=== PATIENT | male | born 1990 | race Caucasian/White ===

== ENCOUNTER 2023-03-12 02:11 | Emergency (ER) | payer MEDICAID, SELFPAY ==
[2023-03-12] VITALS (7 sets, daily range): BP systolic 124–160; BP diastolic 82–106; PULSE 99–114; RESP 18–20; TEMP 36.6; O2SAT 97–100; BMI 29.8
--- NOTE | 2023-03-12 02:57 | CRLHL7_ITS ---
For Patients: As a result of the Century Cures Act, medical imaging exams and procedure reports are released immediately into your electronic medical record. You may view this report before your referring provider. If you have questions, please contact your health care provider. INDICATION: Abdominal pain. Bloody diarrhea. TECHNIQUE: Multiplanar CT examination of the abdomen and pelvis were acquired after the administration of 100 mL Isovue 370 intravenously. COMPARISON: None. FINDINGS: Lower chest: Unremarkable. Mild gynecomastia Liver: Normal. Gallbladder: Normal. Biliary: No biliary ductal dilitation. Pancreas: Normal. Spleen: Tiny punctate calcifications within the splenic parenchyma, likely due to prior granulomatous disease. Adrenal Glands: Normal. Kidneys: Normal size and symmetrically enhancing. No obstructive calculi or hydronephrosis. Ureters: Unremarkable. Bladder: Unremarkable. Bowel: No obstruction. Questionable mild small-bowel wall thickening and hyper enhancing. The appendix is normal. No significant colonic diverticulosis. Fluid-filled loops of colon, suggestive of diarrheal illness. Pelvic organs: Unremarkable. Peritoneum: No free fluid or pneumoperitoneum. Vessels: Normal. Portal vein remains patent. No significant atherosclerotic disease. Lymph Nodes: Enlarged marsha hepatis and portacaval lymph nodes, of uncertain etiology, measuring up to 1.7 cm (2:51). Abdominal Wall/Soft Tissues: Unremarkable. Bones: Unremarkable. IMPRESSION: 1. Enlarged marsha hepatis and portacaval lymph nodes, indeterminate and of uncertain etiology, measuring up to 1.7 cm, possibly reactive. Consider short interval follow-up CT to assess stability. 2. Questionable mild hyperenhancement and thickening of the small bowel wall, which can be seen in the setting of a nonspecific infectious versus inflammatory enteritis. Fluid-filled colon, suggestive of diarrheal illness. Please note that all CT scans at this facility use dose modulation, iterative reconstruction, and/or weight-based dosing when appropriate to reduce radiation dose to as low as reasonably achievable. Dictated by Marcello Verdugo MD @ 03/12/2023 3:55:05 AM (Electronically Signed)
[2023-03-12 03:07] LABS: Lactate* 1.1 mmol/L (0.5-1.9)
[2023-03-12 03:08] LABS: Basophils Absolute Auto 0.02 K/uL (0.00-0.30); Basophils Percent Auto 0.2 % (0.0-3.0); Eosinophils Absolute Auto 0.06 K/uL (0.00-0.50); Eosinophils Percent Auto 0.7 % (0.0-7.0); Hematocrit 55.4 % (37.0-53.0); Immature Granulocytes Abs Auto 0.03 K/uL (0.00-0.30); Immature Granulocytes Pct Auto 0.3 %; Lymphocytes Percent Auto 5.7 % (20-44); Mean Corpuscular HGB Conc 33 gm/dL (32-36); Mean Corpuscular Hemoglobin 29 pg (26-34); Mean Corpuscular Volume 90 fL (80-100); Monocytes Percent Auto 4.9 % (0.0-11.0); Neutrophils Percent Auto 88.2 % (42.0-72.0); Platelet Count* 190 K/uL (140-440); Red Blood Count 6.16 m/uL (4.30-5.90); Slide Review Reflex No
--- NOTE | 2023-03-12 03:09 | ED_ITS ---
HPI - General Adult General Chief complaint: Nausea/Vomiting Stated complaint: Vomiting, Diarrhea Time Seen by Provider: 03/12/23 02:16 Source: patient Mode of arrival: ambulatory Limitations: no limitations History of Present Illness HPI narrative: 32-year-old male presents the emergency department for evaluation of bloody diarrhea. Reports that he started feeling nauseated 3 hours ago and had vomiting, about 30-45 minutes later, started having bloody diarrhea and has had several episodes. It is bright/darkish red. No black tarry stools. Some lower mild abdominal cramping. No fevers. No trauma or injury. No history of abdominal surgeries. Does have a family history of colon cancer in a grandmother at age 50. No personal or family history of inflammatory bowel disease, colitis. He has no history of anticoagulant use. On specific questioning, he does endorse a little bit of dysuria at the end of urination that started around the same time but also has some body aches. No headache. No shortness of breath, no rashes. No prior history of similar recent symptoms. No prior colonoscopy nor indications to ever have had 1. Has not tried taking any medication to help with the symptoms. Past medical history notable for hypertension, depression. Home meds are fluoxetine, lisinopril, hydrochlorothiazide. Denies allergies. Nonsmoker. ROS notable for the GI symptoms and generalized body aches as above, otherwise denies times 12 systems. Related Data Allergies Allergy/AdvReac Type Severity Reaction Status Date / Time No Known Drug Allergies Allergy Verified 03/12/23 02:26 [facility] Medical History Depression ?F32.A - Depression, unspecified (ICD-10) Hypertension ?I10 - Essential (primary) hypertension (ICD-10) Surgical History No significant past surgical history Social History Smoking Status: Never smoker Second hand tobacco smoke exposure: No How often do you have a drink containing alcohol: never How often do you have six or more drinks on one occasion: Never AUDIT-C Alcohol total score: 0 Non-prescribed substance use: denies use Exam Const: Vital Signs, click to edit/add: Vital Signs - 24 hr 03/12/23 02:24 03/12/23 02:24 03/12/23 03:00 Temperature 97.9 F Pulse Rate 104 H Pulse Rate [Right Pulse Oximeter] 99 Respiratory Rate 18 20 Blood Pressure 124/92 H Blood Pressure [Ri ght Upper Arm] 124/82 Pulse Oximetry 99 100 97 Oxygen Delivery Me thod Room Air 03/12/23 03:10 03/12/23 03:15 Temperature 97.9 F Pulse Rate 102 H Pulse Rate [Right Pulse Oximeter] 99 Respiratory Rate 20 20 Blood Pressure 134/85 Blood Pressure [Ri ght Upper Arm] 134/85 Pulse Oximetry 98 98 Oxygen Delivery Me thod Room Air Documenting provider has reviewed patient's vital signs: yes Common normals: no apparent distress and alert General appearance: cooperative Orientation/consciousness: Yes awake Other: Answers questions appropriately. No intoxication or impairment. HENMT: Common normals: normocephalic Head and scalp: normocephalic Face and sinus: normal facial exam Mouth: oral and palatal mucosa normal Throat: posterior oropharynx normal Eye: Common normals: conjunctivae normal General eye: normal appearance of both eyes Conjunctiva: conjunctiva(e) normal Neck & C-Spine: Common normals: full ROM and no lymphadenopathy Resp: Common normals: normal respiratory effort, no use of accessory muscles and clear to auscultation bilaterally Effort & inspection: able to speak in complete sentences Auscultation: clear to auscultation bilaterally Cardio: Common normals: regular rate, regular rhythm, S1 normal heart sound, S2 normal heart sound and no murmurs Rate: regular rate Rhythm: regular rhythm Heart sounds: S1 normal and S2 normal GI: Common normals: Normal to inspection, nondistended, normoactive bowel sounds present, soft to palpation, no hepatosplenomegaly and no masses Palpation: soft and no hepatosplenomegaly Rectal Exam - Male: visual inspection normal and normal sphincter tone; no hemorrhoids, no prolapse, no lesions and no mass Other: Mild diffuse tenderness. No rebound tenderness or guarding. No masses. Stool Hemoccult collected. But there was no visible blood or stool in the rectal vault. Extremity: Common normals: normal to inspection and no pedal edema Neuro: Sensorium/orientation: awake and alert Speech: speech normal Gait (neuro): normal gait Motor exam: no tremor noted Psych: Attitude: engaged Activity/motor behavior: appropriate eye contact Insight: insight good Judgement: judgment good Skin: Common normals: no rashes or lesions noted General skin exam: no rashes or lesions noted Course Course ED Course: Reported bloody diarrhea but no signs of any visible blood on exam. No signs of sepsis, hypotension or fever. Differential diagnosis includes inflammatory colitis, infectious colitis, gastroenteritis, diverticular bleed, volvulus, ischemic bowel, among others. Stool culture, ova and parasite, CT of the abdomen and pelvis, basic labs ordered. IV Protonix, Zofran and 1 L of IV fluids while we await results. Reevaluation(s) Time of Reevaluation #1: 04:12 Reevaluation #1: Patient reassessed, feeling well. Has not had any bloody diarrhea for us here in the ED and has had no vomiting. Did receive a L of fluid in the medications as described above. Overall CT and lab findings are very reassuring. I do not suspect that this is a bacterial infection based on labs and overall presentation. I recommended conservative management, lots of fluids and symptomatic treatment of the vomiting with Zofran. This certainly could have been a small Julee-Cotto tear. Recommended [id number] omeprazole for 1 week, Zofran. Counseled on alarm symptoms. Follow-up with primary care provider in 2 weeks to recheck symptoms and decide if a colonoscopy or endoscopy should be performed if he has persistent symptoms. All questions answered, ve rbalizes understanding and agreement. Vital Signs Vital signs: Initial Vital Signs Temperature 97.9 F 03/12/23 02:24 Temperature Source Temporal Artery Scan 03/12/23 02:24 Pulse Rate 104 H 03/12/23 02:24 Respiratory Rate 18 03/12/23 02:24 Blood Pressure 124/92 H 03/12/23 02:24 Blood Pressure Mean 102 03/12/23 02:24 Blood Pressure Position Sitting 03/12/23 02:24 Pulse Oximetry 99 03/12/23 02:24 Oxygen Delivery Method Room Air 03/12/23 02:24 Vital Signs Temperature 97.9 F 03/12/23 02:24 Pulse Rate 104 H 03/12/23 02:24 Respiratory Rate 18 03/12/23 02:24 Blood Pressure 124/92 H 03/12/23 02:24 Pulse Oximetry 99 03/12/23 02:24 Oxygen Delivery Method Room Air 03/12/23 02:24 Temperature 97.9 F 03/12/23 03:15 Pulse Rate 99 03/12/23 03:15 Respiratory Rate 20 03/12/23 03:15 Blood Pressure 134/85 03/12/23 03:15 Pulse Oximetry 98 03/12/23 03:15 Oxygen Delivery Method Room Air 03/12/23 03:15 Medications Administered Medications: Generic Name Dose Route Start Last Admin Trade Name Freq PRN Reason Stop Dose Admin Lactated Ringer's 1,000 mls @ 1,000 mls/hr 03/12/23 02:57 03/12/23 03:10 Lactated Ringers 1000 Ml IV 03/12/23 03:56 1,000 mls/hr .Q1H ONE Administration Ondansetron HCl 4 mg 03/12/23 02:57 03/12/23 03:10 Ondansetron 2 Mg/Ml Inj IVP 4 mg ONCE PRN Administration Pantoprazole Sodium 40 mg 03/12/23 02:57 03/12/23 03:10 Pantoprazole Sodium 40 Mg Inj IVP 03/12/23 02:58 40 mg ONCE ONE Administration Medical Decision Making Lab Data Lab results reviewed: Yes I reviewed the patient's lab results Lab results narrative: Stool blood positive, as expected. No sig no family leukocytosis. No elevation of inflammatory markers. Suspect viral gastroenteritis. Labs: Lab Results 03/12/23 Range/Units 03:00 WBC 8.80 (4.50-11.00) K/uL RBC 6.16 H (4.30-5.90) m/uL Hgb 18.0 H (13.5-17.5) gm/dL Hct 55.4 H (37.0-53.0) % MCV 90 (80-100) fL MCH 29 (26-34) pg MCHC 33 (32-36) gm/dL RDW Coeff of Dago 13.0 (11.5-15.5) % Plt Count 190 (140-440) K/uL Neut % (Auto) 88.2 H (42.0-72.0) % Lymph % (Auto) 5.7 L (20-44) % [place] % (Auto) 4.9 (0.0-11.0) % Eos % (Auto) 0.7 (0.0-7.0) % Baso % (Auto) 0.2 (0.0-3.0) % Neut # (Auto) 7.80 H (1.7-7.0) K/uL Lymph # (Auto) 0.50 L (0.90-2.90) K/uL [place] # (Auto) 0.40 (0.00-0.90) K/UL Eos # (Auto) 0.06 (0.00-0.50) K/uL Baso # (Auto) 0.02 (0.00-0.30) K/uL Abs Immat Gran (auto) 0.03 (0.00-0.30) K/uL Imm/Tot Granulo (auto) 0.3 % Sodium 140 (135-149) mmol/L Potassium 4.7 (3.6-5.1) mmol/L Chloride 107 (96-114) mmol/L Carbon Dioxide 21 (20-32) mmol/L Anion Gap 12 (7-15) mEq/L BUN 23 (5-24) mg/dL Creatinine 1.6 H (0.5-1.5) mg/dL Estimated Creat Clear 72.08 Estimated GFR 58 ml/min Glucose 148 H (60-115) mg/dL Lactate 1.1 (0.5-1.9) mmol/L Calcium 9.6 (8.4-10.6) mg/dL Total Bilirubin 1.0 (0.1-1.5) mg/dL AST 28 (12-35) U/L ALT 43 (4-50) U/L Alkaline Phosphatase 78 (40-150) U/L C-Reactive Protein 0.9 (0.5-1.0) mg/dL Total Protein 8.9 H (6.0-8.3) g/dL Albumin 4.9 (3.3-5.0) g/dL Lipase 48 (23-300) U/L Urine Color Yellow (Yellow) Urine Appearance Clear (Clear) Urine pH 5.5 (5.0-8.5) Ur Specific [place] >= 1.030 (1.000-1.030) Urine Protein 2+ A (Negative) Urine Glucose (UA) Negative (Negative) Urine Ketones 1+ A (Negative) Urine Blood Negative (Negative) Urine Nitrite Negative (Negative) Urine Bilirubin 2+ A (Negative) Urine Urobilinogen 0.2 (0.2-1.0) Ur Leukocyte Esterase Negative (Negative) Urine RBC 0-2 (0-2) Urine WBC 0-2 (0-5) Ur Squamous Epith Cells Few (None-Few) Amorphous Sediment Few A (None) Urine Bacteria Moderate A (None) Urine Mucus Moderate A (None) Stool Occult Blood Positive (Negative) Imaging Data CT scan - abdomen: Attestation: I have reviewed the pertinent imaging results. My impression: Enteritis. No free air, obstruction, appendicitis, volvulus or other mass. Radiologist's impression: IMPRESSION: 1. Enlarged marsha hepatis and portacaval lymph nodes, indeterminate and of uncertain etiology, measuring up to 1.7 cm, possibly reactive. Consider short interval follow-up CT to assess stability. 2. Questionable mild hyperenhancement and thickening of the small bowel wall, which can be seen in the setting of a nonspecific infectious versus inflammatory enteritis. Fluid-filled colon, suggestive of diarrheal illness. Discharge Plan Discharge Clinical Impression: Gastroenteritis Patient Disposition: Home, Self-Care Condition: Improved Instructions: Gastroenteritis (DC) Additional Instructions: As we discussed, there are no signs of severe infection, significant inflammation, tumors or other dangerous reason for the bloody diarrhea tonight. I suspect that this was just a very bad case of the stomach flu. It is okay to take Tylenol 1000 mg every 6 hours as needed for discomfort. I am going to give you prescription for some anti nausea medicine. You may take this up to every 8 hours. Drink lots of fluids. You will likely still have symptoms for another 2-3 days. I would like for you to purchase some [id number]-[id number] omeprazole and take this once daily for the next week. This will help heal the stomach irritation as well. Unfortunately, you may still have a little bit of bloody diarrhea. There are no signs that this is caused by food poisoning. If you have severe bleeding, are lightheaded, dizzy and or have a fever over 100.4, you should come back to the emergency room. Please make a follow-up appointment with a primary care physician within the next few weeks. I would like them to recheck your blood work and make sure there are no signs of persistent bleeding. You should also discuss with them whether you should have a colonoscopy. These are often recommended after you natarajan ve bloody stools to look for any dangerous reason that would not be seen on the CT scan. Please bring this paperwork with you to the appointment. Activity Level: No Restrictions Discharge Diet: Regular Follow Up/Referrals: Provider,Not a Local [Primary Care Provider] - Stand Alone Forms: [employer] Info Instructions
[2023-03-12] MEDS: LACTATED RINGERS 1000 ML 1,000 ML IV (03:10)
[2023-03-12] MEDS: PANTOPRAZOLE SODIUM 40 MG INJ IVP (03:10)
[2023-03-12] MEDS: ONDANSETRON 2 MG/ML inj 4 MG IVP (03:10)
[2023-03-12 03:13] LABS: Appearance Urine Clear (Clear); Bilirubin Urine 2+ (Negative); Blood Urine Negative (Negative); Color Urine Yellow (Yellow); Glucose Urine Negative (Negative); Ketones Urine 1+ (Negative); Leukocyte Esterase Urine Negative (Negative); Nitrite Urine Negative (Negative); Protein Urine 2+ (Negative); Specific Gravity Urine >= 1.030 (1.000-1.030); Urobilinogen Urine 0.2 (0.2-1.0); pH Urine 5.5 (5.0-8.5)
[2023-03-12 03:16] LABS: Fecal Occult Blood* Positive (Negative)
[2023-03-12 03:22] LABS: Albumin* 4.9 g/dL (3.3-5.0); Chloride* 107 mmol/L (96-114)
[2023-03-12 03:23] LABS: Potassium* 4.7 mmol/L (3.6-5.1); Sodium* 140 mmol/L (135-149)
[2023-03-12 03:25] LABS: Creatinine* 1.6 mg/dL (0.5-1.5); Est. Creatinine Clearance* 72.08; Estimated Glomerular Filt Rate 58 ml/min
[2023-03-12 03:26] LABS: Alanine Aminotransferase* 43 U/L (4-50); Alkaline Phosphatase* 78 U/L (40-150); Anion Gap 12 mEq/L (7-15); Aspartate Amino Transferase* 28 U/L (12-35); Blood Urea Nitrogen* 23 mg/dL (5-24); Calcium* 9.6 mg/dL (8.4-10.6); Carbon Dioxide* 21 mmol/L (20-32); Glucose* 148 mg/dL (60-115); Lipase* 48 U/L (23-300); Total Protein* 8.9 g/dL (6.0-8.3)
[2023-03-12 03:28] LABS: C Reactive Protein* 0.9 mg/dL (0.5-1.0)
[2023-03-12 03:31] LABS: Amorphous Sediment Urine Few; Bacteria Urine Moderate; RBC Urine 0-2 (0-2); Squamous Epithelial Cell Urine Few (None-Few); WBC Urine 0-2 (0-5)
[2023-03-12 03:32] LABS: Mucus Urine Moderate
[2023-03-12 04:04] LABS: PCR FLU A Negative PCR FLU A (Negative); PCR FLU B Negative PCR FLU B (Negative); PCR RSV Negative PCR RSV (Negative); SARS PCR* Negative SARS-CoV-2 (Negative)
== END 2023-03-12 04:31 | disposition home or self-care (01) ==
PROVIDERS: Emergency Provider Family Medicine
DX: K52.9 Noninfective gastroenteritis and colitis, unspecified (principal)
CPT/HCPCS: 36415; 74177; 80053; 81003; 81015; 82270; 83605; 83690; 85025; 86140; 87045; 87046; 87086; 87177; 87209; 87427; 87631; 94761; 96374; 96375; 99284; C9113; J2405; J7120; Q9967

== ENCOUNTER 2024-09-10 21:02 | Emergency (ER) | payer OTHER, SELFPAY ==
[2024-09-10 21:05] VITALS: BP 185/137; PULSE 99; RESP 18; TEMP 37.6; O2SAT 95
--- NOTE | 2024-09-10 21:51 | ED.ABDPAIN ---
HPI - Abdominal Pain General Time Seen by Provider: 21:51 Date Seen: 09/10/24 Chief Complaint: Unspecified Complaint, Adult Stated Complaint: throbbing in his stomach Time Seen by Provider: 09/10/24 21:51 Source: patient Mode of arrival: ambulatory History of Present Illness HPI narrative: Gerhard is a 34-year-old male with history of hypertension (not currently on medications) who presents the emergency department for evaluation of palpitations. Patient reports he feels a pulsating sensation in his abdomen. Patient reports he has had this intermittent sensation that has been ongoing since Sunday. Patient states that he called the nurse's line who told him to come in for evaluation to rule out an aneurysm. Patient denies any fever, chills, chest pain, shortness of breath, denies any palpitations in his chest, or fluttering of his heart. Denies any abdominal pain, nausea, vomiting, diarrhea, denies any extremity weakness, paresthesias, no other complaints. Patient reports history of hypertension however states he has been off his medications for at least the past year because he did not like all the medications made him feel. No other complaints. Related Data Home Medications ?Medication ?Instructions ?Recorded ?Confirmed No Known Home Medications 09/10/24 09/10/24 Allergies Allergy/AdvReac Type Severity Reaction Status Date / Time strawberries Allergy Intermediate Hives Uncoded 09/10/24 21:12 Review of Systems Narrative Past medical history, past surgical history, medications, allergies, family history, and social history were reviewed with the patient. No additional pertinent items. A medically appropriate review of systems was performed with pertinent positives and negatives noted in HPI, all other systems negative. [facility] Medical History Depression ?F32.A - Depression, unspecified (ICD-10) Hypertension ?I10 - Essential (primary) hypertension (ICD-10) Surgical History No significant past surgical history Social History Smoking Status: Never smoker Do you use any of these nicotine containing products: None Second hand tobacco smoke exposure: No How often do you have a drink containing alcohol: never How often do you have six or more drinks on one occasion: Never AUDIT-C Alcohol total score: 0 Non-prescribed substance use: denies use Exam Narrative: Exam Narrative: General: Afebrile, no acute distress HEENT: Normocephalic, atraumatic, conjunctiva normal. MMM Neck: non-tender, supple Cardio: regular rate. regular rhythm Resp: Normal work of breathing, no respiratory distress, lungs clear bilaterally, no wheezing, rhonchi, rales Chest/Back: no visual signs of trauma, no midline tenderness, no CVA tenderness Abdomen: soft, non distension, no tenderness, no peritoneal signs Neuro: alert and fully oriented. CN II-XII grossly intact. Grossly normal strength and sensation in all extremities. MSK: no deformities. Normal range of motion Integumentary/Skin: no rash visualized, normal color Psych: normal affect, normal behavior Const: Vital Signs, click to edit/add: Vital Signs - 24 hr 09/10/24 21:05 09/10/24 23:00 Temperature 99.6 F Pulse Rate [Right Pulse Oximeter] 99 106 H Respiratory Rate 18 11 L Blood Pressure [Ri ght Upper Arm] 185/137 H 156/108 H Pulse Oximetry 95 97 Oxygen Delivery Me thod Room Air Room Air Course Vital Signs Vital signs: Initial Vital Signs Temperature 99.6 F 09/10/24 21:05 Temperature Source Temporal Artery Scan 09/10/24 21:05 Pulse Rate 99 09/10/24 21:05 Pulse Rhythm Regular 09/10/24 21:05 Respiratory Rate 18 09/10/24 21:05 Blood Pressure 185/137 H 09/10/24 21:05 Blood Pressure Mean 153 H 09/10/24 21:05 Blood Pressure Position Sitting 09/10/24 21:05 Pulse Oximetry 95 09/10/24 21:05 Oxygen Delivery Method Room Air 09/10/24 21:05 Vital Signs Temperature 99.6 F 09/10/24 21:05 Pulse Rate 99 09/10/24 21:05 Respiratory Rate 18 09/10/24 21:05 Blood Pressure 185/137 H 09/10/24 21:05 Pulse Oximetry 95 09/10/24 21:05 Oxygen Delivery Method Room Air 09/10/24 21:05 Temperature 99.6 F 09/10/24 21:05 Pulse Rate 106 H 09/10/24 23:00 Respiratory Rate 11 L 09/10/24 23:00 Blood Pressure 156/108 H 09/10/24 23:00 Pulse Oximetry 97 09/10/24 23:00 Oxygen Delivery Method Room Air 09/10/24 23:00 MDM - Abdominal Pain MDM Narrative Medical decision making narrative: Gerhard is a 34-year-old male with history of hypertension (not currently on medications) who presents the emergency department for evaluation of palpitations. Upon arrival patient is nontoxic appearing, afebrile, no distress. Patient is hypertensive upon arrival 185/137 with repeat 156/108. Patient has history of hypertension however has been off his medications for at least 1 year. Patient does not have a primary care provider that he follows with. Patient denies any chest pain, shortness of breath, heart palpitations/fluttering. Patient denies any abdominal pain, weakness, paresthesias. Overall physical exam is unremarkable. I discussed with patient, very low suspicious for aneurysm given clinical presentation. I reviewed EKG which demonstrates normal sinus rhythm with a ventricular rate of 95 beats per minute, QTC 429, no acute ischemic change, no prior EKG to compare to. Comprehensive labs in the ED unremarkable with negative point of care troponin, no acute metabolic or electrolyte abnormality, no leukocytosis, hemoglobin 16.6. Very mild elevation in liver function tests with AST 39, ALT 53. Patient denies any abdominal pain, nausea, vomiting. Overall patient is nontoxic appearing, EKG, labs reassuring. Per chart review patient did have a CT scan of his abdomen and pelvis back in 2023 which did not demonstrate an aortic aneurysm. Patient reassured. At this time no further workup in the emergency department, it would not repeat CT imaging at this time. I did discuss with length at patient regarding his uncontrolled hypertension and recommend him following up with his primary care provider and did give him referrals to follow up with 1 of our primary care provider for further evaluation, follow-up, and to get restarted on blood pressure medication that would work for him. Patient understands and agrees with the plan. Strict return precautions discussed. Lab Data Labs: Lab Results 09/10/24 09/10/24 Range/Units 22:20 22:25 WBC 7.04 (4.50-11.00) K/uL RBC 5.60 (4.30-5.90) m/uL Hgb 16.6 (13.5-17.5) gm/dL Hct 50.0 (37.0-53.0) % MCV 89 (80-100) fL MCH 30 (26-34) pg MCHC 33 (32-36) gm/dL RDW Coeff of Dago 12.9 (11.5-15.5) % Plt Count 194 (140-440) K/uL Neut % (Auto) 66.3 (42.0-72.0) % Lymph % (Auto) 22.6 (20-44) % [place] % (Auto) 7.1 (0.0-11.0) % Eos % (Auto) 3.0 (0.0-7.0) % Baso % (Auto) 0.6 (0.0-3.0) % Neut # (Auto) 4.67 (1.7-7.0) K/uL Lymph # (Auto) 1.59 (0.90-2.90) K/uL [place] # (Auto) 0.50 (0.00-0.90) K/UL Eos # (Auto) 0.21 (0.00-0.50) K/uL Baso # (Auto) 0.04 (0.00-0.30) K/uL Abs Immat Gran (auto) 0.03 (0.00-0.30) K/uL Imm/Tot Granulo (auto) 0.4 % Sodium 139 (135-149) mmol/L Potassium 4.5 (3.6-5.1) mmol/L Chloride 107 (96-114) mmol/L Carbon Dioxide 24 (20-32) mmol/L Anion Gap 8 (7-15) mEq/L BUN 14 (5-24) mg/dL Creatinine 1.5 (0.5-1.5) mg/dL Estimated GFR 62 ml/min Glucose 104 (60-115) mg/dL Calcium 9.7 (8.4-10.6) mg/dL Total Bilirubin 0.5 (0.1-1.5) mg/dL Direct Bilirubin 0.3 (0.0-0.5) mg/dL AST 39 H (12-35) U/L ALT 53 H (4-50) U/L Alkaline Phosphatase 65 (40-150) U/L Total Protein 8.1 (6.0-8.3) g/dL Albumin 4.6 (3.3-5.0) g/dL Lipase 57 (23-300) U/L POC Troponin I 0.00 L (0.01-0.04) ng/ml Discharge Plan Discharge Clinical Impression: Palpitation, Abdominal discomfort, Uncontrolled hypertension Patient Disposition: Home, Self-Care Condition: Stable Additional Instructions: Please follow-up with your primary care provider or call the clinic to schedule an appointment in the next 3-5 days for further evaluation and follow-up. It is extremely important for you to follow-up in get restarted on your blood pressure medications. Please return to the emergency department if chest pain, difficulty breathing, abdominal pain, weakness, or any worsening symptoms. It was a pleasure taking care of you today. Prescriptions: No Action No Known Home Medications Follow Up/Referrals: Provider,Not a Local [Primary Care Provider, Family Practice] Stand Alone Forms: [employer] Info Instructions
[2024-09-10 22:33] LABS: Hematocrit 50.0 % (37.0-53.0); Hemoglobin* 16.6 gm/dL (13.5-17.5); Immature Granulocytes Abs Auto 0.03 K/uL (0.00-0.30); Immature Granulocytes Pct Auto 0.4 %; Lymphocytes Absolute Auto 1.59 K/uL (0.90-2.90); Mean Corpuscular HGB Conc 33 gm/dL (32-36); Mean Corpuscular Hemoglobin 30 pg (26-34); Mean Corpuscular Volume 89 fL (80-100); RDW Coefficient of Variation % 12.9 % (11.5-15.5); Red Blood Count 5.60 m/uL (4.30-5.90); White Blood Count* 7.04 K/uL (4.50-11.00)
[2024-09-10 22:34] LABS: Slide Review Reflex No
[2024-09-10 22:40] LABS: Troponin, Point-of-Care* 0.00 ng/ml (0.01-0.04)
[2024-09-10 22:45] LABS: Albumin* 4.6 g/dL (3.3-5.0); Chloride* 107 mmol/L (96-114); Potassium* 4.5 mmol/L (3.6-5.1); Sodium* 139 mmol/L (135-149)
[2024-09-10 22:48] LABS: Alanine Aminotransferase* 53 U/L (4-50); Alkaline Phosphatase* 65 U/L (40-150); Anion Gap 8 mEq/L (7-15); Aspartate Amino Transferase* 39 U/L (12-35); Bilirubin Direct* 0.3 mg/dL (0.0-0.5); Bilirubin Total* 0.5 mg/dL (0.1-1.5); Blood Urea Nitrogen* 14 mg/dL (5-24); Calcium* 9.7 mg/dL (8.4-10.6); Carbon Dioxide* 24 mmol/L (20-32); Creatinine* 1.5 mg/dL (0.5-1.5); Estimated Glomerular Filt Rate 62 ml/min; Glucose* 104 mg/dL (60-115); Total Protein* 8.1 g/dL (6.0-8.3)
[2024-09-10 23:00] VITALS: BP 156/108; PULSE 106; RESP 11; O2SAT 97
== END 2024-09-10 23:39 | disposition home or self-care (01) ==
PROVIDERS: Emergency Provider Emergency Medicine
DX: R00.2 Palpitations (principal); R10.9 Unspecified abdominal pain; I10 Essential (primary) hypertension
CPT/HCPCS: 36415; 80048; 80076; 83690; 84484; 85025; 93005; 99284; 99285

== ENCOUNTER 2024-12-07 02:59 | Emergency (ER) | payer BC, SELFPAY ==
[2024-12-07 03:02] VITALS: BP 181/147; PULSE 98; RESP 18; TEMP 36.1; O2SAT 95; BMI 32.7
--- NOTE | 2024-12-07 03:12 | ED_ITS ---
HPI - Skin/Abscess/Foreign Bdy General Time Seen by Provider: 03:12 Date Seen: 12/07/24 Chief complaint: Unspecified Complaint, Adult Stated complaint: skin rash, possible bed bugs Time Seen by Provider: 12/07/24 03:14 Source: patient Mode of arrival: ambulatory History of Present Illness HPI narrative: Gerhard is a 34 yo male who presents to the ED for evaluation of a rash. Patient complains of burning pain to his right upper extremity that started on . Patient denies any trauma, injury, no rash at the time. Patient reports that on Sunday he noticed a rash to his right upper arm near his elbow, underneath his armpit, into his back. Patient reports rash is painful and itchy with little pustules. Patient denies any fever, chills, weakness, tingling, numbness. Patient reports pain is 4/10, no medications or creams prior to arrival. Denies any recent travel, no new medications, no recent illnesses, no other complaints. Related Data Previous Rx's ?Medication ?Instructions ?Recorded valacyclovir 1 gram tablet 1,000 mg PO Q8H 10 days #30 tabs 12/07/24 Allergies Allergy/AdvReac Type Severity Reaction Status Date / Time strawberries Allergy Intermediate Hives Uncoded 09/10/24 21:12 Review of Systems Narrative: Past medical history, past surgical history, medications, allergies, family history, and social history were reviewed with the patient. No additional pertinent items. A medically appropriate review of systems was performed with pertinent positives and negatives noted in HPI, all other systems negative. PFSH PFS Medical History Depression ?F32.A - Depression, unspecified (ICD-10) Hypertension ?I10 - Essential (primary) hypertension (ICD-10) Surgical History No significant past surgical history Social History Smoking Status: Never smoker Do you use any of these nicotine containing products: None Second hand tobacco smoke exposure: No How often do you have a drink containing alcohol: never How often do you have six or more drinks on one occasion: Never AUDIT-C Alcohol total score: 0 Non-prescribed substance use: denies use Exam Narrative: Exam Narrative: General: Afebrile, in distress secondary to pain HEENT: Normocephalic, atraumatic, conjunctiva normal. MMM Neck: non-tender, supple Cardio: regular rate. regular rhythm Resp: Normal work of breathing, no respiratory distress, lungs clear bilaterally, no wheezing, rhonchi, rales Chest/Back: no visual signs of trauma, no midline tenderness, no CVA tenderness Abdomen: soft, non distension, no tenderness, no peritoneal signs Neuro: alert and fully oriented. CN II-XII grossly intact. Grossly normal strength and sensation in all extremities. MSK: no deformities. Normal range of motion Integumentary/Skin: Painful, pruritic erythematous rash with some pustules noted to right upper extremity ~T1 dermatome. Does not cross midline Psych: normal affect, normal behavior Const: Vital Signs, click to edit/add: Vital Signs - 24 hr 12/07/24 03:02 Temperature 97.0 F L Pulse Rate [Left F emoral] 98 Respiratory Rate 18 Blood Pressure [Ri ght Upper Arm] 181/147 H Pulse Oximetry 95 Oxygen Delivery Me thod Room Air Course Vital Signs Vital signs: Initial Vital Signs Temperature 97.0 F L 12/07/24 03:02 Temperature Source Temporal Artery Scan 12/07/24 03:02 Pulse Rate 98 12/07/24 03:02 Pulse Rhythm Regular 12/07/24 03:02 Respiratory Rate 18 12/07/24 03:02 Blood Pressure 181/147 H 12/07/24 03:02 Blood Pressure Mean 158 H 12/07/24 03:02 Blood Pressure Position Sitting 12/07/24 03:02 Pulse Oximetry 95 12/07/24 03:02 Oxygen Delivery Method Room Air 12/07/24 03:02 Vital Signs Temperature 97.0 F L 12/07/24 03:02 Pulse Rate 98 12/07/24 03:02 Respiratory Rate 18 12/07/24 03:02 Blood Pressure 181/147 H 12/07/24 03:02 Pulse Oximetry 95 12/07/24 03:02 Oxygen Delivery Method Room Air 12/07/24 03:02 Temperature 97.0 F L 12/07/24 03:02 Pulse Rate 98 12/07/24 03:02 Respiratory Rate 18 12/07/24 03:02 Blood Pressure 181/147 H 12/07/24 03:02 Pulse Oximetry 95 12/07/24 03:02 Oxygen Delivery Method Room Air 12/07/24 03:02 Medications Administered Medications: Discontinued Medications Generic Name Dose Route Start Last Admin Trade Name Trisha PRN Reason Stop Dose Admin Ibuprofen 600 mg 12/07/24 03:37 12/07/24 03:54 Ibuprofen 200 Mg Tablet PO 12/07/24 03:38 600 mg ONCE ONE Administration Valacyclovir HCl 1,000 mg 12/07/24 03:37 12/07/24 03:55 Valacyclovir Hcl 500 Mg Tablet PO 12/07/24 03:38 1,000 mg ONCE ONE Administration MDM - Skin/Abscess/Foreign Bdy MDM Narrative Medical decision making narrative: Gerhard is a 34 yo male who presents to the ED for evaluation of a rash. Upon arrival patient is nontoxic appearing, afebrile, in distress secondary to pain. On examination patient with Painful, pruritic erythematous rash with some pustules noted to right upper extremity ~T1 dermatome. Does not cross midline. Given patient's symptoms with prodromal pain, pruritus prior to development of the rash as well as visual appearance of the rash concerned for uncomplicated herpes zoster. I discussed with patient regarding treatment with antivirals and he is agreeable, will treat with valacyclovir, recommend supportive care with Tylenol, ibuprofen, oxycodone for at bedtime. Recommend continue supportive care, close outpatient follow-up, strict return precautions discussed. Patient understands and agrees the plan. Differential Diagnosis Differential diagnosis: Likely abscess of skin or subcutaneous tissue, viral exanthem, dermatophytosis, urticaria, herpes zoster, allergic reaction to drug, cellulitis, eczema, insect bites, impetigo and contact dermatitis Medical Records Attestation: I reviewed the patient's medical records. Discharge Plan Discharge Clinical Impression: Rash Patient Disposition: Home, Self-Care Condition: Stable Instructions: Shingles (ED) Additional Instructions: Please follow-up with your primary care provider in the next 3-5 days for further evaluation and follow-up. Please call to schedule appointment. Please alternate taking Tylenol 1000 mg and ibuprofen 600 mg every 6 hours as needed for fever, pain. Please take oxycodone 1 tablet at bedtime to help with severe pain. Please take antiviral medication 1 tablet 3 times a day for the next 10 days. Please make sure to wash her hands often, cover your mouth when you sneeze/cough. Please avoid contact with those that have no immune system (immunocompromised), , or young infants/babies. Please return to the emergency department if you develop any worsening symptoms. It was a pleasure taking care of you today. We hope you feel better soon. Prescriptions: New valacyclovir 1 gram tablet 1,000 mg PO Q8H 10 Days Qty: 30 0RF Follow Up/Referrals: Provider,Not a Local [Primary Care Provider, Family Practice] Stand Alone Forms: [employer] Info Instructions
[2024-12-07] MEDS: IBUPROFEN 200 MG TABLET 600 MG PO (03:54)
[2024-12-07] MEDS: VALACYCLOVIR HCL 500 MG TABLET 1000 MG PO (03:55)
== END 2024-12-07 03:56 | disposition home or self-care (01) ==
PROVIDERS: Emergency Provider Emergency Medicine
DX: R21 Rash and other nonspecific skin eruption (principal)
CPT/HCPCS: 99283; 99284; A9270